=== PATIENT | male | born 1950 | race Caucasian/White ===

== ENCOUNTER 2022-05-29 07:15 | Day surgery (SDC) | payer MEDICARE, BC ==
[~2022-05-29] VITALS: Ht 188 cm; Wt 93.9 kg
[2022-05-29] MEDS ORDERED: AMLO5 (08:22)
[2022-05-29] MEDS ORDERED: FAMO20 (08:22)
[2022-05-29] MEDS ORDERED: METF500 (08:22)
[2022-05-29] MEDS ORDERED: ATOR80 (08:22)
[2022-05-29] MEDS ORDERED: Protonix40 M1 (08:22)
[2022-05-29] MEDS ORDERED: ASPI81CH (08:23)
[2022-05-29] MEDS ORDERED: BUSP5 (08:23)
[2022-05-29] MEDS ORDERED: LORA10ER (08:23)
[2022-05-29] MEDS ORDERED: Bystolic10 MG (08:23)
== END 2022-05-29 10:07 | disposition home or self-care (01) ==
LOC: ORSCSDS 07:15
PROVIDERS: Internal Medicine Gastroenterology
PROC: 0DB68ZX Excision of Stomach, Via Natural or Artificial Opening Endoscopic, Diagnostic (ICD-10-PCS; principal; 2022-05-29 08:45)
PROC: 0DB98ZX Excision of Duodenum, Via Natural or Artificial Opening Endoscopic, Diagnostic (ICD-10-PCS; principal; 2022-05-29 08:45)
PROC: 0DJD8ZZ Inspection of Lower Intestinal Tract, Via Natural or Artificial Opening Endoscopic (ICD-10-PCS; principal; 2022-05-29 08:45)
DX: Z86.010 Personal history of colon polyps (principal); K31.7 Polyp of stomach and duodenum; K29.70 Gastritis, unspecified, without bleeding; I89.0 Lymphedema, not elsewhere classified; K21.9 Gastro-esophageal reflux disease without esophagitis; K64.8 Other hemorrhoids; K57.30 Diverticulosis of large intestine without perforation or abscess without bleeding; C67.9 Malignant neoplasm of bladder, unspecified; I10 Essential (primary) hypertension; F41.9 Anxiety disorder, unspecified; E11.9 Type 2 diabetes mellitus without complications; Z79.84 Long term (current) use of oral hypoglycemic drugs; Z79.899 Other long term (current) drug therapy
CPT/HCPCS: 82947; 88305; 88341; 88342; J2704; J7120

== ENCOUNTER 2022-08-07 10:37 | Inpatient (IN) | payer MEDICARE, BC ==
[~2022-08-07] VITALS: Ht 188 cm; Wt 84.8 kg
[~2022-08-07 10:37] MED LIST changes: -AMLO5; +AMLO5 PO; -ASPI81CH; +ASPI81CH PO; +ATOR20 PO; -ATOR80; -BUSP5; +BUSP5 PO; -Bystolic10 MG; +Bystolic10 MG PO; -FAMO20; +FAMO20 PO; -LORA10ER; +LORA10ER PO; -ONDA4ODT; -OXYC5 PO; -TAMS.4ER PO
[2022-08-07 11:10] LABS: BASOPHILS ABSOLUTE AUTO 0.03 K/mm3 (0.00-0.23); BASOPHILS PERCENT AUTO 1 % (0-2); EOSINOPHILS ABSOLUTE AUTO 0.02 K/mm3 (0.00-0.68); EOSINOPHILS PERCENT AUTO 1 % (0-6); Hematocrit 31.7 % (37.0-53.0); Hemoglobin 11.2 g/dL (13.5-17.5); IMMATURE GRAN ABSOLUTE AUTO 0.02 K/mm3 (0.00-0.10); IMMATURE GRAN PERCENT AUTO 1 % (0-1); LYMPHOCYTES ABSOLUTE AUTO 0.75 K/mm3 (0.84-5.20); LYMPHOCYTES PERCENT AUTO 20 % (21-46); MONOCYTES ABSOLUTE AUTO 0.21 K/mm3 (0.16-1.47); MONOCYTES PERCENT AUTO 6 % (4-13); Mean Corpuscular HGB 29.4 pg (26.0-34.0); Mean Corpuscular HGB Conc 35.3 g/dL (31.5-36.5); Mean Corpuscular Volume 83 fL (80-100); Mean Platelet Volume 9.5 fL (9.1-12.4); NEUTROPHILS ABSOLUTE AUTO 2.66 K/mm3 (1.96-9.15); NEUTROPHILS PERCENT AUTO 72 % (41-73); Platelet Count 158 K/mm3 (150-400); RDW Coefficient Variation 12.9 % (11.7-14.2); RDW Standard Deviation 39.2 fL (35.1-46.3); Red Blood Cell Count 3.81 M/mm3 (4.30-5.90); White Blood Cell Count 3.69 K/mm3 (4.00-11.30)
[2022-08-07 11:47] LABS: Albumin, Blood 2.6 g/dL (3.4-5.0); Albumin/Globulin Ratio 0.6 (0.8-1.8); Bilirubin, Total 0.6 mg/dL (0.1-1.0); Bun/Creatinine Ratio 12.4 (12.0-20.0); Calcium, Blood 6.7 mg/dL (8.5-10.1); Creatinine, Blood 3.3 mg/dL (0.60-1.20); Potassium, Blood 3.1 mmol/L (3.5-5.5); Total Protein, Blood 6.6 g/dL (6.4-8.2)
[2022-08-07 12:27] LABS: Influenza A, PCR NEGATIVE (NEGATIVE); Influenza B, PCR NEGATIVE (NEGATIVE); Resp Syncytial Virus, PCR NEGATIVE (NEGATIVE); SARS-Cov-2 (COVID-19) PCR, MMC NEGATIVE (NEGATIVE)
[2022-08-07 15:15] LABS: Bun/Creatinine Ratio 14.6 (12.0-20.0); Calcium, Blood 6.5 mg/dL (8.5-10.1); Creatinine, Blood 3.08 mg/dL (0.60-1.20); Potassium, Blood 3.5 mmol/L (3.5-5.5)
--- NOTE | 2022-08-07 15:45 | NUR ---
PT ARRIVED TO UNIT @ THIS TIME. PT ARRIVES W/ SURG CONSENT FOR DR. AGUILA IN HAND-NO REPORT OF PLANNED SURG PROCEDURE. PT STATES DR. AGUILA INFORMED HIM OF NEEDED NEPH TUBES AND NEEDED RESPONSE W/IN APPROX. 1 HOUR-DR. AGUILA OFFICE CONTACTED AND THIS RN REPORTS PT PLANS TO HAVE SURG. PROCEDURE. IND. IN ROOM. LAST ATE APPROX. 1300 W/ ORAL K+ ADMIN. ER NURSE UNAWARE OF PLANNED PROCEDURE. PT C/O MISSING MED LIST PROVIDED TO ER, NURSE NOTIFIED AND PLANS TO TUBE MED LIST IF FOUND. PT ORIENTED TO ROOM, ADMIN COMPLETE @ THIS TIME.
[2022-08-07] MEDS ORDERED: ONDA4ODT PO (16:02)
[2022-08-07] MEDS ORDERED: TAMS.4ER PO (16:03)
[2022-08-07] MEDS ORDERED: OXYC5 PO (16:06)
--- NOTE | 2022-08-07 17:05 | NUR ---
PT TO PROCEDURE @ THIS TIME
--- NOTE | 2022-08-07 18:33 | NUR ---
PT RETURNED FROM PACU @ THIS TIME VSS. MIN. EBL. DENIES PAIN. BILAT NEPHROSTOMY DRESSING CDI, DRAINING PINK THIN LIQUIDS TO GRAVITY. PT REQUESTING FOOD, PLAN TO ADVANCE TOLERATED.
--- NOTE | 2022-08-08 05:09 | NUR ---
SHIFT SUMMARY NOC PT A/O X 4. PT VSS POST OP PLACEMENT OF BILATERAL NEPHROSTOMY TUBES WHICH ARE FREE FROM S/S OF INFECTION AND DRAINING PINK TINGED URINE WITH GOOD OUTPUT TO GRAVITY. PT CURRENTLY HAS LR RUNNING @ 125MLS. PT AWAITING RESOLUTION OF HYPOVOLEMIA AND DECREASED POTASSIUM. AWAITING AM LAB RESULTS. PT PLEASANT AND COOPERATIVE TO CARE. NO ACUTE CHANGES. PT CURRENTLY RESTING WITH BED RAILS UP, BED IN LOWEST POSITION, AND CALL LIGHT WITHIN REACH.
[2022-08-08 05:30] LABS: Hemoglobin 10.5 g/dL (13.5-17.5); Mean Corpuscular HGB 29.1 pg (26.0-34.0); Mean Corpuscular Volume 83 fL (80-100); Mean Platelet Volume 9.1 fL (9.1-12.4); Platelet Count 111 K/mm3 (150-400); RDW Coefficient Variation 12.8 % (11.7-14.2); RDW Standard Deviation 39.1 fL (35.1-46.3); Red Blood Cell Count 3.61 M/mm3 (4.30-5.90); White Blood Cell Count 2.72 K/mm3 (4.00-11.30)
[2022-08-08 05:51] LABS: Magnesium, Blood 1.7 mg/dL (1.6-2.4)
[2022-08-08 05:52] LABS: Bun/Creatinine Ratio 14.1 (12.0-20.0); Calcium, Blood 6.3 mg/dL (8.5-10.1); Creatinine, Blood 3.06 mg/dL (0.60-1.20); Potassium, Blood 3.4 mmol/L (3.5-5.5)
--- NOTE | 2022-08-08 13:08 | NUR ---
Upon receiving a referral for spiritual care, I visited the patient. The patient is lying in bed and alert. He immediately talks about his medical problems, the poor diagnosis he received from his oncologist and his deep depression (upon hearing the mediacl prognosis). 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 He shares about his years of not being the man he wanted to be and the change that occurred in his life because of his spouse, Tiki and his fatih in God. He talks about his hobbies and interests and how they create some respite from the cancer urban. I reinforce helpful attitudes and practices, hear confession and provide therapeutic listening, theological insights and prayer. Pt responds well and shows sign of a reduction in stress and an elevation in mood. I will continue to remain available to patient and family.
--- NOTE | 2022-08-08 16:59 | NUR ---
SHIFT SUMMARY PT A&OX4 AND IN PLEASENT MOOD T/O SHIFT. TOLERATING PO DIET WELL. BILAT NEPHROSTOMY BAGS IN PLACE, DRAINING RED URINE TO GRAVITY. DENIES PAIN T/O SHIFT. PT VOICED CONCERN ABOUT NOT UNDERSTADING HIS ILLNESS-DR. SEXTON IN TO SEE PT AND ANSWER ALL QUESTIONS POSSIBLE. CALL LIGHT W/IN REACH. VSS. IND IN ROOM.
--- NOTE | 2022-08-09 04:24 | NUR ---
SHIFT SUMMARY NOC PT A/O X 4. PT VSS. PT BL NEPHROSTOMY DRESSING IS C/D/I. TUBES ARE DRAINING PINK URINE TO GRAVITY. PT IS AWAITING RENAL PANEL LABS/ELECTROLYTE PANEL FOR DISCHAGE. PT HAS ANXIETY ABOUT NEW NEPHROSTOMY AND MANAGING THEM. PT ALSO CONCERNED ABOUT TERMINAL CANCER DIAGNOSIS WHICH HAS KENDAL TO BACK BONES AND LIVER. NO ACUTE CHANGES DURING SHIFT. PT IS CURRENTLY RESTING WITH BED RAILS UP, BED IN LOWEST POSITION, AND CALL LIGHT WITHIN REACH.
[2022-08-09 04:53] LABS: Hematocrit 30.5 % (37.0-53.0); Hemoglobin 10.7 g/dL (13.5-17.5); Mean Corpuscular HGB 29.3 pg (26.0-34.0); Mean Corpuscular HGB Conc 35.1 g/dL (31.5-36.5); Mean Corpuscular Volume 84 fL (80-100); Mean Platelet Volume 9.2 fL (9.1-12.4); Platelet Count 105 K/mm3 (150-400); RDW Coefficient Variation 12.8 % (11.7-14.2); RDW Standard Deviation 39.3 fL (35.1-46.3); Red Blood Cell Count 3.65 M/mm3 (4.30-5.90); White Blood Cell Count 3.28 K/mm3 (4.00-11.30)
[2022-08-09 05:20] LABS: Bun/Creatinine Ratio 13.5 (12.0-20.0); Calcium, Blood 6.6 mg/dL (8.5-10.1); Creatinine, Blood 3.1 mg/dL (0.60-1.20); Potassium, Blood 3.5 mmol/L (3.5-5.5)
--- NOTE | 2022-08-09 17:43 | NUR ---
Had extensive conversation with patient about his careneeds and prognosis. He did most of the talking. He is worried about his prognsois and care needs. He is his 's primary day care provider she is a very frail copd patient. He is upset about his prognosis and how with will effect his family and children. We discussed his renal function and potential future needs. Will suggest pt get referral to dr tidwell or other print controller. He has a PHARMACEUTICAL ENGINEER as his pormary that is hard to get into and i urologist is in [place]. May benefit or tolerate tratment better out patient care. pt high risk for readmission and repeat WILBERTO. Reviewed POA, Bernstein, trust and code status and downsizing and making a plan for his . 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 He is grieving the loss of his function and ability to care for his . Will follow up with a polst and plan of care.
--- NOTE | 2022-08-09 18:23 | NUR ---
ALERT AND ORIENTED X4, MAKES NEEDS KNOWN, ANXIOUS ABOUT TUBE CARE, EXTENSIVE EDUCATION GIVEN ON NEPHROTUBES HOME CARE, FOLLOW UP NEEDS, AND THE DISCHARGE PROCESS. POSSIBLE DISCHARGE TOMORROW, PATIENT WANTING A CONSULT WITH DR BECK FOR KIDNEY NEEDS. DENIES PAIN THROUGH OUT THE DAY, INDEPENDENT IN ROOM, PLEASANT TO ALL CARE, CALL LIGHT WITH IN REACH, NOT ACUTE CHANGES, WILL RELAY TO PM RN
[2022-08-10 04:56] LABS: Hematocrit 29.7 % (37.0-53.0); Hemoglobin 10.5 g/dL (13.5-17.5); Mean Corpuscular HGB 29.4 pg (26.0-34.0); Mean Corpuscular HGB Conc 35.4 g/dL (31.5-36.5); Mean Corpuscular Volume 83 fL (80-100); Mean Platelet Volume 9.5 fL (9.1-12.4); Platelet Count 101 K/mm3 (150-400); RDW Coefficient Variation 12.8 % (11.7-14.2); Red Blood Cell Count 3.57 M/mm3 (4.30-5.90); White Blood Cell Count 3.15 K/mm3 (4.00-11.30)
[2022-08-10 05:28] LABS: Albumin, Blood 2.4 g/dL (3.4-5.0); Anion Gap 5 mmol/L (6-16); Blood Urea Nitrogen 38 mg/dL (8-24); CO2, Blood 28 mmol/L (21-32); Calcium, Blood 6.7 mg/dL (8.5-10.1); Chloride, Blood 104 mmol/L (98-108); Creatinine, Blood 2.37 mg/dL (0.60-1.20); Glomerular Filtration Rate 28 (60-); Glucose, Blood 119 mg/dL (70-99); Phosphorus, Blood 3.7 mg/dL (2.5-4.9); Potassium, Blood 3.3 mmol/L (3.5-5.5); Sodium, Blood 137 mmol/L (136-145)
--- NOTE | 2022-08-10 06:07 | NUR ---
LEGAL PARAPROFESSIONAL SUMMARY: A&Ox4. PLEASANT AND COOPERATIVE WITH CARE. CALLS APPROPRIATELY AND IS ABLE TO COMMUNICATE NEEDS EFFECTIVELY. BILATERAL NEPHROSTOMIES PATENT AND DRAINING TO GRAVITY. DENIES C / O PAIN IN SPITE OF METS TO BONE AND LIVER. CONTINUES TO HAVE ANXIETY R / T TERMINAL CANCER Dx. ANTICIPATE DC HOME TODAY. LABS DONE THIS AM WITHOUT RETURN OF CRITICAL VALUES. WILL REPORT TO ONCOMING RN.
[2022-08-10] MEDS ORDERED: DOCU100 PO (12:48)
[2022-08-10] MEDS ORDERED: ACET325 PO (12:48)
[2022-08-10] MEDS ORDERED: SENN187 PO (12:49)
== END 2022-08-10 15:13 | disposition home health service (06) | DRG 684 ==
LOC: ER 10:37 → MEDS 13:14
PROVIDERS: Emergency Medicine; Internal Medicine; Nurse Practitioner Acute Care; ADMIT Internal Medicine
PROC: 0T9030Z Drainage of Right Kidney with Drainage Device, Percutaneous Approach (ICD-10-PCS; principal; 2022-08-08)
PROC: 0T9130Z Drainage of Left Kidney with Drainage Device, Percutaneous Approach (ICD-10-PCS; 2022-08-08)
DX: N17.9 Acute kidney failure, unspecified (principal); E86.0 Dehydration; E83.51 Hypocalcemia; E87.6 Hypokalemia; E11.9 Type 2 diabetes mellitus without complications; C67.9 Malignant neoplasm of bladder, unspecified; N13.39 Other hydronephrosis; F41.9 Anxiety disorder, unspecified; E86.1 Hypovolemia; D70.1 Agranulocytosis secondary to cancer chemotherapy; T45.1X5A Adverse effect of antineoplastic and immunosuppressive drugs, initial encounter; D64.81 Anemia due to antineoplastic chemotherapy
CPT/HCPCS: 0241U; 36415; 71045; 74176; 76937; 80048; 80053; 80069; 82550; 82947; 83735; 85025; 85027; 93005; 93010; 96361; 96365; 99152; 99153; 99285-25; A9270; C1729; C1769; C1894; J0610; J1644; J2250; J3010; J7030; J7040; J7120; Q9967

== ENCOUNTER → 2022-08-07 | Outpatient (CLI) | payer MEDICARE, BC ==
[~2022-08-07] MED LIST: AMLO5; ASPI81CH; ATOR80; BUSP5; Bystolic10 MG; FAMO20; LORA10ER; METF500; ONDA4ODT; OXYC5 PO; Protonix40 M1; TAMS.4ER PO
[2022-08-07 11:10] LABS: BASOPHILS ABSOLUTE AUTO 0.02 K/mm3 (0.00-0.23); BASOPHILS PERCENT AUTO 1 % (0-2); EOSINOPHILS ABSOLUTE AUTO 0.04 K/mm3 (0.00-0.68); EOSINOPHILS PERCENT AUTO 1 % (0-6); Hematocrit 34.6 % (37.0-53.0); Hemoglobin 12.1 g/dL (13.5-17.5); IMMATURE GRAN ABSOLUTE AUTO 0.04 K/mm3 (0.00-0.10); IMMATURE GRAN PERCENT AUTO 1 % (0-1); LYMPHOCYTES ABSOLUTE AUTO 0.56 K/mm3 (0.84-5.20); LYMPHOCYTES PERCENT AUTO 15 % (21-46); MONOCYTES ABSOLUTE AUTO 0.22 K/mm3 (0.16-1.47); MONOCYTES PERCENT AUTO 6 % (4-13); Mean Corpuscular HGB 29.2 pg (26.0-34.0); Mean Corpuscular Volume 84 fL (80-100); Mean Platelet Volume 9.8 fL (9.1-12.4); NEUTROPHILS ABSOLUTE AUTO 2.76 K/mm3 (1.96-9.15); NEUTROPHILS PERCENT AUTO 76 % (41-73); Platelet Count 172 K/mm3 (150-400); RDW Standard Deviation 39.6 fL (35.1-46.3); Red Blood Cell Count 4.14 M/mm3 (4.30-5.90); White Blood Cell Count 3.64 K/mm3 (4.00-11.30)
[2022-08-07 13:07] LABS: Albumin, Blood 2.7 g/dL (3.4-5.0); Albumin/Globulin Ratio 0.6 (0.8-1.8); Bilirubin, Total 0.6 mg/dL (0.1-1.0); Bun/Creatinine Ratio 11.8 (12.0-20.0); Calcium, Blood 6.8 mg/dL (8.5-10.1); Creatinine, Blood 3.3 mg/dL (0.60-1.20); Globulin, Blood 4.5 g/dL (2.2-4.0); Potassium, Blood 3.1 mmol/L (3.5-5.5); Total Protein, Blood 7.2 g/dL (6.4-8.2)
== END | disposition home or self-care (01) ==
LOC: LAB SHORT 09:00
PROVIDERS: Internal Medicine Hematology & Oncology
DX: C67.9 Malignant neoplasm of bladder, unspecified (principal)
CPT/HCPCS: 80053; 85025

== ENCOUNTER → 2022-08-30 | Outpatient (CLI) | payer MEDICARE, BC ==
[~2022-08-30] MED LIST changes: +ACET325 PO; +DOCU100 PO; +ONDA4ODT PO; +OXYC5 PO; +SENN187 PO; +TAMS.4ER PO
[2022-08-30 13:15] LABS: Source, Urine Voided
[2022-08-30 18:03] LABS: Appearance, Urine Cloudy (Clear); Bilirubin, Urine Neg (Neg); Blood, Urine 4+ (Neg); Glucose Qualitative, Urine Neg (Neg); Ketones, Urine Neg (Neg); Leukocyte Esterase, Urine 3+ (Neg); Nitrite, Urine Neg (Neg); Protein, Urine 3+ (Neg); Urobilinogen, Urine NORM (Normal)
[2022-08-30 18:34] LABS: Color, Urine Pale Yellow (P-Yellow)
[2022-08-30 18:35] LABS: White Blood Cells, Urine 50-100 /hpf (0-5)
[2022-08-30 18:36] LABS: Bacteria Many /hpf; Squamous Epithelial Cells Few /hpf (Few); Transitional Epithelial Cells Rare /hpf (0-Rare)
== END | disposition home or self-care (01) ==
LOC: LAB SHORT 12:15 → LAB 12:15
PROVIDERS: Physician Assistant
DX: R39.15 Urgency of urination (principal)
CPT/HCPCS: 81001; 87077; 87086; 87186

== ENCOUNTER 2022-09-26 01:07 | Day surgery (SDC) | payer MEDICARE, BC | END 2022-09-26 18:01 | disposition home or self-care (01) | LOC: ATC 01:07 | DX: C67.8 Malignant neoplasm of overlapping sites of bladder (principal); D64.81 Anemia due to antineoplastic chemotherapy; Z87.891 Personal history of nicotine dependence | CPT/HCPCS: 36430; 86850; 86900; 86901; 86920; J7050; P9016 ==

== ENCOUNTER 2022-10-10 06:51 | Inpatient (IN) | payer MEDICARE, BC ==
[~2022-10-10] VITALS: Ht 188 cm; Wt 88.0 kg
[2022-10-10 07:39] LABS: BASOPHILS PERCENT AUTO 1 % (0-2); EOSINOPHILS ABSOLUTE AUTO 0.04 K/mm3 (0.00-0.68); EOSINOPHILS PERCENT AUTO 0 % (0-6); Hematocrit 35.9 % (37.0-53.0); Hemoglobin 11.5 g/dL (13.5-17.5); IMMATURE GRAN ABSOLUTE AUTO 0.09 K/mm3 (0.00-0.10); IMMATURE GRAN PERCENT AUTO 1 % (0-1); LYMPHOCYTES ABSOLUTE AUTO 0.26 K/mm3 (0.84-5.20); LYMPHOCYTES PERCENT AUTO 2 % (21-46); MONOCYTES ABSOLUTE AUTO 1.23 K/mm3 (0.16-1.47); MONOCYTES PERCENT AUTO 10 % (4-13); Mean Corpuscular Volume 94 fL (80-100); Mean Platelet Volume 9.9 fL (9.1-12.4); NEUTROPHILS ABSOLUTE AUTO 10.88 K/mm3 (1.96-9.15); NEUTROPHILS PERCENT AUTO 86 % (41-73); Platelet Count 256 K/mm3 (150-400); RDW Coefficient Variation 21.7 % (11.7-14.2); RDW Standard Deviation 70.4 fL (35.1-46.3); Red Blood Cell Count 3.83 M/mm3 (4.30-5.90)
[2022-10-10 07:48] LABS: Source, Urine Nephrostomy
[2022-10-10 07:52] LABS: Bilirubin, Urine Neg (Neg); Blood, Urine 2+ (Neg); Glucose Qualitative, Urine Neg (Neg); Ketones, Urine Neg (Neg); Leukocyte Esterase, Urine 3+ (Neg); Nitrite, Urine Neg (Neg); Protein, Urine 3+ (Neg); Urobilinogen, Urine NORM (Normal)
[2022-10-10 07:59] LABS: Albumin, Blood 3.4 g/dL (3.4-5.0); Albumin/Globulin Ratio 0.8 (0.8-1.8); Bilirubin, Total 0.6 mg/dL (0.1-1.0); Calcium, Blood 8.5 mg/dL (8.5-10.1); Creatinine, Blood 1.77 mg/dL (0.60-1.20); Potassium, Blood 4.2 mmol/L (3.5-5.5); Total Protein, Blood 7.4 g/dL (6.4-8.2)
[2022-10-10 08:13] LABS: Appearance, Urine Cloudy (Clear); Color, Urine Yellow (P-Yellow)
[2022-10-10 08:21] LABS: Bacteria Many /hpf; Squamous Epithelial Cells Rare /hpf (Few); White Blood Cells, Urine TNTC /hpf (0-5)
[2022-10-10] MEDS ORDERED: OMEP20ER PO (16:52)
--- NOTE | 2022-10-10 18:26 | NUR ---
ADMIT NOTE/SHIFT SUMMARY- PT ALERT, ORIENTED AND INDEPENDENT IN THE ROOM. PT HAS TWO URINALS LABLED L AND R SO HE CAN EMPTY HIS NEPHROSTOMY. HE HAS BEEN ASKED TO CALL STAFF TO EMPTY THE URINALS SO THEY CAN BE DOCUMENTED. PT IS CURRENTLY IN BED CALL LIGHT IN REACH NO S&S OF DISTRESS, ADMISSION IS COMPLETED MED REC PROVIDED BY THE PT FAMILY. PT ADMITTED AFTER HE RECIEVED A DOSE OF IMMUNOTHERAPY DRUG AND THEN THE FOLLOWING MORNING (TODAY) HE DEVELOPED A FEVER. PT WAS POSITIVE FOR UTI ON ADMIT AND IS GETTING ABX FOR THIS. NO FEVER SINCE ADMISSION ON MEDICAL FLOOR. WILL PASS ALL ON IN BEDSIDE REPORT WITH NIGHT RN.
[2022-10-11 05:11] LABS: BASOPHILS ABSOLUTE AUTO 0.07 K/mm3 (0.00-0.23); BASOPHILS PERCENT AUTO 1 % (0-2); EOSINOPHILS ABSOLUTE AUTO 0.07 K/mm3 (0.00-0.68); EOSINOPHILS PERCENT AUTO 1 % (0-6); Hematocrit 29.1 % (37.0-53.0); Hemoglobin 9.4 g/dL (13.5-17.5); IMMATURE GRAN ABSOLUTE AUTO 0.03 K/mm3 (0.00-0.10); IMMATURE GRAN PERCENT AUTO 1 % (0-1); LYMPHOCYTES ABSOLUTE AUTO 0.64 K/mm3 (0.84-5.20); LYMPHOCYTES PERCENT AUTO 11 % (21-46); MONOCYTES PERCENT AUTO 18 % (4-13); Mean Corpuscular HGB 30.5 pg (26.0-34.0); Mean Corpuscular HGB Conc 32.3 g/dL (31.5-36.5); Mean Corpuscular Volume 95 fL (80-100); Mean Platelet Volume 9.6 fL (9.1-12.4); NEUTROPHILS ABSOLUTE AUTO 3.87 K/mm3 (1.96-9.15); NEUTROPHILS PERCENT AUTO 68 % (41-73); Platelet Count 187 K/mm3 (150-400); RDW Coefficient Variation 21.4 % (11.7-14.2); RDW Standard Deviation 69.7 fL (35.1-46.3); Red Blood Cell Count 3.08 M/mm3 (4.30-5.90); White Blood Cell Count 5.68 K/mm3 (4.00-11.30)
[2022-10-11 05:31] LABS: Bun/Creatinine Ratio 13.2 (12.0-20.0); Calcium, Blood 7.9 mg/dL (8.5-10.1); Creatinine, Blood 1.9 mg/dL (0.60-1.20); Potassium, Blood 4.1 mmol/L (3.5-5.5)
--- NOTE | 2022-10-11 06:37 | NUR ---
PATIENT ALERT AND ORIENTED, ROOM AIR, INDEPENDENT, NO TELE, ADA DIET, 20 RFA W/ LR @75 CC/HR, PATIENT HAD BILATERAL NEPHROSTOMY TUBES IN PLACE AND PATENT, PATIENT EMPTIES THEM HIMSELF, OXY GIVEN X2 FOR PAIN, NO EVENTS OVERNIGHT
--- NOTE | 2022-10-11 18:34 | NUR ---
SHIFT SUMMARY PT IX AXO 4. H HAS BEEN UP INDEPENDENTLY AND EMPTYING HIS OWN NEPHROSTOMYS. TOLERATED ABX AND ABLE TO GET HOME BP MED FROM HIS SON WHICH IS LABELED BY PHARM AND PLACED IN THE DRAWER. THIS EVENING HE WAS ANXIOUS AND WANTED ME TO CHECK HIS GARCÍA WHICH WAS ELEVATED. hE STATED HE FELT SCK TO HIS STOMACH AND JUMPY WELL FELT THOUGHT HE WAS HALLUCINATING FLOATING BOXES AND THE TV COMING OFF THE WALL. DR NOTIFIED. OFFERED A ONE TIME DOSE OF ATIVAN. PT RESPONDING WELL AND ABLE TO SETTLE INTO BED. BED IN LOWEST POSITION AND CALL LIGHT IN REACH.
[2022-10-12 05:36] LABS: Magnesium, Blood 1.8 mg/dL (1.6-2.4)
[2022-10-12 05:37] LABS: Albumin, Blood 2.7 g/dL (3.4-5.0); Anion Gap 3 mmol/L (6-16); Blood Urea Nitrogen 25 mg/dL (8-24); Bun/Creatinine Ratio 14.5 (12.0-20.0); CO2, Blood 26 mmol/L (21-32); Calcium, Blood 8.2 mg/dL (8.5-10.1); Chloride, Blood 109 mmol/L (98-108); Creatinine, Blood 1.72 mg/dL (0.60-1.20); Glomerular Filtration Rate 41 (60-); Glucose, Blood 110 mg/dL (70-99); Phosphorus, Blood 3.4 mg/dL (2.5-4.9); Sodium, Blood 138 mmol/L (136-145)
--- NOTE | 2022-10-12 06:31 | NUR ---
PATIENT COMPLAINED OF PAIN THROUGHOUT SHIFT. MEDICATED PER EMAR AND APPLIED HEATING PAD TO BACK.
--- NOTE | 2022-10-12 18:03 | NUR ---
SHIFT SUMMARY PT HAS HAD A BETTER DAY WITH ANXIETY, BUT HAS NOTICED THAT HIS PAIN MEDICATION NEEDS HAVE INCREASED. hE IS NOW BEING MEDICATED ALMOST EVERY FOUR HOURS AND IS STILL EXPERIENCEING BREATHROUGH. HE WAS ABLE TO NAP ON AND OFF TODAY TO MAKE UP FOR SLEEP LOST. ANXEIETY WAS CONTROLLED AND HOME ANXIETY MED WAS ORDERED FOR PM. PT SPOKE WITH MD AND DECIDED ONE MORE DAY ON ABX WOULD BE EBENFICIAL AND SO HE WILL DC TOMORROW IF ALL GOES WELL. PT UP INDEPENDENT IN THE ROOM, EMPTYING OWN NEPTHROSOTMIES. GOOD URINE OUTPUT, PT WELL HYDRATED. BED IN LOWEST POSITION AND CALL LIGHT IN REACH.
--- NOTE | 2022-10-13 06:02 | NUR ---
PATIENT ALERT AND ORIENTED, ROOM AIR, NO TELE, BILATERAL NEPHROSTOMY TUBES WITH GREAT OUTPUT, PATIENT INDEPENDENT, MEDICATED FOR PAIN X2, NO EVENTS OVERNIGHT, PLAN TO D/C HOME TODAY
[2022-10-13] MEDS ORDERED: MIRALAX17 GM PO (12:45)
[2022-10-13] MEDS ORDERED: AMLO5 PO (12:45)
[2022-10-13] MEDS ORDERED: VISBIOME 112.51 EACH PO (12:45)
[2022-10-13] MEDS ORDERED: AMOCLA875 PO (12:46)
--- NOTE | 2022-10-13 15:19 | NUR ---
DISCHARGE NOTE MR JACKSON WAS DISCHARGED HOME FROM [facility] AT 1400HRS VIA WHEELCHAIR WITH HIS SON. THEY VERBALISED UNDERSTANDING OF WRITTEN AND VERBAL DISCHARGE INSTRUCTIONS. SON HAS PICKED UP FAXED MEDICATIONS AND HAS NARCOTIC PRESCRIPTION. MR JACKSON DENIED PAIN TODAY, DID NOT WANT OR NEED OXY. PIV REMOVED INTACT PRIOR TO DISCHARGE. PT AMBULATORY, STEADY GAIT, IN HIS ROOM AND TO BATHROOM THROUGHOUT THE SHIFT.
== END 2022-10-13 15:10 | disposition home or self-care (01) | DRG 698 ==
LOC: ER 06:51 → MEDS 10:45
PROVIDERS: Emergency Medicine; Internal Medicine; Nurse Practitioner Acute Care; ADMIT Internal Medicine
DX: T83.512A Infection and inflammatory reaction due to nephrostomy catheter, initial encounter (principal); A41.81 Sepsis due to Enterococcus; C79.51 Secondary malignant neoplasm of bone; N13.6 Pyonephrosis; C77.4 Secondary and unspecified malignant neoplasm of inguinal and lower limb lymph nodes; D84.9 Immunodeficiency, unspecified; F41.9 Anxiety disorder, unspecified; N18.9 Chronic kidney disease, unspecified; K21.9 Gastro-esophageal reflux disease without esophagitis; E78.5 Hyperlipidemia, unspecified; D63.1 Anemia in chronic kidney disease; E11.22 Type 2 diabetes mellitus with diabetic chronic kidney disease; I12.9 Hypertensive chronic kidney disease with stage 1 through stage 4 chronic kidney disease, or unspecified chronic kidney disease; C67.9 Malignant neoplasm of bladder, unspecified; Z93.6 Other artificial openings of urinary tract status; Z92.25 Personal history of immunosuppression therapy; Z88.5 Allergy status to narcotic agent; Z88.8 Allergy status to other drugs, medicaments and biological substances; Z79.02 Long term (current) use of antithrombotics/antiplatelets; Z79.899 Other long term (current) drug therapy; Z79.82 Long term (current) use of aspirin; Y84.6 Urinary catheterization as the cause of abnormal reaction of the patient, or of later complication, without mention of misadventure at the time of the procedure; Z79.891 Long term (current) use of opiate analgesic; Z98.890 Other specified postprocedural states
CPT/HCPCS: 36415; 71045; 74177; 80048; 80053; 80069; 81001; 83036; 83605; 83735; 85025; 87077; 87086; 87186; 96365-59; 96366; 96368; 96375; 99285-25; A9270; J0295; J0696; J1644; J2405; J7030; J7120; Q9967

== ENCOUNTER 2022-10-18 23:50 | Emergency (ER) | payer MEDICARE, BC ==
[~2022-10-18] VITALS: Ht 188 cm; Wt 90.7 kg
[~2022-10-18 23:50] MED LIST changes: +AMOCLA875 PO; +MIRALAX17 GM PO; +OMEP20ER PO; +VISBIOME 112.51 EACH PO
== END 2022-10-19 07:31 | disposition home or self-care (01) ==
LOC: ER 23:50
DX: T83.89XA Other specified complication of genitourinary prosthetic devices, implants and grafts, initial encounter (principal); Y73.8 Miscellaneous gastroenterology and urology devices associated with adverse incidents, not elsewhere classified
CPT/HCPCS: 99282

== ENCOUNTER → 2022-11-29 | Outpatient (CLI) | payer MEDICARE, BC ==
[~2022-11-29] MED LIST changes: +AMLODIPINE-ATO1 EAC1 PO; +CALC.25 PO; +FURO20 PO; +HYDR1TAB94 PO; +LEVFLO500 PO; +NEBI10 PO
[2022-11-29 12:48] LABS: Source, Urine Clean Catch
[2022-11-29 13:52] LABS: Appearance, Urine Cloudy (Clear); Bilirubin, Urine Neg (Neg); Blood, Urine 3+ (Neg); Color, Urine Yellow (P-Yellow); Glucose Qualitative, Urine Neg (Neg); Ketones, Urine Neg (Neg); Leukocyte Esterase, Urine 3+ (Neg); Nitrite, Urine Neg (Neg); Protein, Urine 3+ (Neg); Specific Gravity, Urine 1.005 (1.003-1.022); Urobilinogen, Urine NORM (Normal)
[2022-11-29 14:00] LABS: Bacteria Mod /hpf; Mucus Mod (0-Heavy); Squamous Epithelial Cells Few /hpf (Few)
== END | disposition home or self-care (01) ==
LOC: LAB SHORT 10:55 → LAB 10:55
PROVIDERS: Urology
DX: N39.0 Urinary tract infection, site not specified (principal)
CPT/HCPCS: 81001; 87077; 87086; 87186

== ENCOUNTER → 2022-12-11 | Outpatient (CLI) | payer MEDICARE, BC ==
[2022-12-11 10:01] LABS: BASOPHILS ABSOLUTE AUTO 0.03 K/mm3 (0.00-0.23); BASOPHILS PERCENT AUTO 1 % (0-2); EOSINOPHILS ABSOLUTE AUTO 0.09 K/mm3 (0.00-0.68); EOSINOPHILS PERCENT AUTO 2 % (0-6); Hematocrit 40.5 % (37.0-53.0); Hemoglobin 13.6 g/dL (13.5-17.5); IMMATURE GRAN ABSOLUTE AUTO 0.01 K/mm3 (0.00-0.10); IMMATURE GRAN PERCENT AUTO 0 % (0-1); LYMPHOCYTES ABSOLUTE AUTO 0.67 K/mm3 (0.84-5.20); LYMPHOCYTES PERCENT AUTO 16 % (21-46); MONOCYTES PERCENT AUTO 12 % (4-13); Mean Corpuscular HGB 28.7 pg (26.0-34.0); Mean Corpuscular HGB Conc 33.6 g/dL (31.5-36.5); Mean Corpuscular Volume 85 fL (80-100); Mean Platelet Volume 9.8 fL (9.1-12.4); NEUTROPHILS ABSOLUTE AUTO 2.98 K/mm3 (1.96-9.15); NEUTROPHILS PERCENT AUTO 70 % (41-73); Platelet Count 187 K/mm3 (150-400); RDW Coefficient Variation 12.9 % (11.7-14.2); Red Blood Cell Count 4.74 M/mm3 (4.30-5.90); White Blood Cell Count 4.28 K/mm3 (4.00-11.30)
[2022-12-11 10:18] LABS: Albumin, Blood 3.1 g/dL (3.4-5.0); Albumin/Globulin Ratio 0.7 (0.8-1.8); Bilirubin, Total 0.6 mg/dL (0.1-1.0); Bun/Creatinine Ratio 12.4 (12.0-20.0); Calcium, Blood 8.3 mg/dL (8.5-10.1); Creatinine, Blood 1.29 mg/dL (0.60-1.20); Globulin, Blood 4.6 g/dL (2.2-4.0); Potassium, Blood 3.6 mmol/L (3.5-5.5); Total Protein, Blood 7.7 g/dL (6.4-8.2)
== END | disposition home or self-care (01) ==
LOC: LAB SHORT 09:10 → LAB 09:10
PROVIDERS: Internal Medicine Hematology & Oncology
DX: C67.8 Malignant neoplasm of overlapping sites of bladder (principal)
CPT/HCPCS: 80053; 85025

== ENCOUNTER → 2022-12-13 | Outpatient (CLI) | payer MEDICARE, BC ==
[~2022-12-13] MED LIST changes: +CEFDINIR300 M4 PO; +MECL25 PO
[2022-12-13 09:25] LABS: Source, Urine Clean Catch
[2022-12-13 13:52] LABS: Appearance, Urine Cloudy (Clear); Bilirubin, Urine Neg (Neg); Blood, Urine 4+ (Neg); Color, Urine Yellow (P-Yellow); Glucose Qualitative, Urine Neg (Neg); Ketones, Urine Neg (Neg); Leukocyte Esterase, Urine 3+ (Neg); Nitrite, Urine Neg (Neg); Protein, Urine 3+ (Neg); Specific Gravity, Urine 1.015 (1.003-1.022); Urobilinogen, Urine NORM (Normal)
[2022-12-13 14:09] LABS: Bacteria Mod /hpf; Red Blood Cells, Urine TNTC /hpf (0-2); White Blood Cells, Urine TNTC /hpf (0-5)
[2022-12-13 14:11] LABS: Hyaline Casts 0-2 /lpf (0-2); Mucus Light (0-Heavy); Squamous Epithelial Cells Rare /hpf (Few); WBC Cast 0-2 /lpf (0)
== END | disposition home or self-care (01) ==
LOC: LAB SHORT 09:24 → LAB 09:24 → EDSTATUS 09-25 11:55 → LAB FUT 09-25 11:55
PROVIDERS: Physician Assistant
DX: C67.9 Malignant neoplasm of bladder, unspecified (principal); N39.0 Urinary tract infection, site not specified
CPT/HCPCS: 81001; 87086

== ENCOUNTER 2022-12-18 08:07 | Emergency (ER) | payer MEDICARE, BC ==
[~2022-12-18] VITALS: Ht 188 cm; Wt 79.4 kg
[2022-12-18 08:34] VITALS: BP 142/54
== END 2022-12-18 10:38 | disposition home or self-care (01) ==
LOC: ER 08:07
DX: T83.022A Displacement of nephrostomy catheter, initial encounter (principal); Z96.0 Presence of urogenital implants; I10 Essential (primary) hypertension; E11.9 Type 2 diabetes mellitus without complications; Z85.51 Personal history of malignant neoplasm of bladder; Z88.5 Allergy status to narcotic agent; Z88.8 Allergy status to other drugs, medicaments and biological substances; Z79.899 Other long term (current) drug therapy; X58.XXXA Exposure to other specified factors, initial encounter
CPT/HCPCS: 74018

== ENCOUNTER 2022-12-24 10:09 | Emergency (ER) | payer MEDICARE, BC ==
[~2022-12-24] VITALS: Ht 188 cm; Wt 74.8 kg
[2022-12-24 10:53] LABS: BASOPHILS ABSOLUTE AUTO 0.03 K/mm3 (0.00-0.23); BASOPHILS PERCENT AUTO 1 % (0-2); EOSINOPHILS PERCENT AUTO 0 % (0-6); IMMATURE GRAN ABSOLUTE AUTO 0.01 K/mm3 (0.00-0.10); IMMATURE GRAN PERCENT AUTO 0 % (0-1); LYMPHOCYTES ABSOLUTE AUTO 0.36 K/mm3 (0.84-5.20); LYMPHOCYTES PERCENT AUTO 13 % (21-46); MONOCYTES ABSOLUTE AUTO 0.57 K/mm3 (0.16-1.47); MONOCYTES PERCENT AUTO 20 % (4-13); Mean Corpuscular HGB 28.2 pg (26.0-34.0); Mean Corpuscular HGB Conc 34.2 g/dL (31.5-36.5); Mean Corpuscular Volume 82 fL (80-100); NEUTROPHILS ABSOLUTE AUTO 1.86 K/mm3 (1.96-9.15); NEUTROPHILS PERCENT AUTO 66 % (41-73); Platelet Count 215 K/mm3 (150-400); RDW Coefficient Variation 13.2 % (11.7-14.2); RDW Standard Deviation 38.9 fL (35.1-46.3); Red Blood Cell Count 4.61 M/mm3 (4.30-5.90); White Blood Cell Count 2.83 K/mm3 (4.00-11.30)
[2022-12-24 11:16] LABS: Albumin, Blood 2.9 g/dL (3.4-5.0); Albumin/Globulin Ratio 0.7 (0.8-1.8); Bilirubin, Total 0.9 mg/dL (0.1-1.0); Bun/Creatinine Ratio 8.5 (12.0-20.0); Calcium, Blood 8.4 mg/dL (8.5-10.1); Creatinine, Blood 1.42 mg/dL (0.60-1.20); Globulin, Blood 4.4 g/dL (2.2-4.0); Magnesium, Blood 1.6 mg/dL (1.6-2.4); Potassium, Blood 3.4 mmol/L (3.5-5.5); Total Protein, Blood 7.3 g/dL (6.4-8.2)
[2022-12-24 14:07] LABS: Source, Urine Clean Catch
[2022-12-24 14:30] LABS: Appearance, Urine Turbid (Clear); Bilirubin, Urine Neg (Neg); Blood, Urine 5+ (Neg); Color, Urine Yellow (P-Yellow); Glucose Qualitative, Urine Neg (Neg); Ketones, Urine 1+ (Neg); Leukocyte Esterase, Urine 3+ (Neg); Nitrite, Urine Neg (Neg); Protein, Urine 4+ (Neg); Specific Gravity, Urine 1.015 (1.003-1.022); Urobilinogen, Urine NORM (Normal)
[2022-12-24 14:39] LABS: White Blood Cells, Urine TNTC /hpf (0-5)
[2022-12-24 14:40] LABS: Bacteria Many /hpf; Hyaline Casts 0-2 /lpf (0-2); Squamous Epithelial Cells Rare /hpf (Few); Transitional Epithelial Cells Rare /hpf (0-Rare)
[2022-12-24] MEDS ORDERED: CIPRO500 M1 PO (16:49)
[2022-12-24 17:32] VITALS: BP 153/85
== END 2022-12-24 17:33 | disposition home or self-care (01) ==
LOC: ER 10:09
PROVIDERS: Physician Assistant
DX: R53.1 Weakness (principal); R42 Dizziness and giddiness; E86.1 Hypovolemia; D64.9 Anemia, unspecified; C67.9 Malignant neoplasm of bladder, unspecified; R55 Syncope and collapse; R82.90 Unspecified abnormal findings in urine; E86.0 Dehydration; R06.02 Shortness of breath; I10 Essential (primary) hypertension; E11.9 Type 2 diabetes mellitus without complications; Z88.5 Allergy status to narcotic agent; Z88.8 Allergy status to other drugs, medicaments and biological substances; Z79.899 Other long term (current) drug therapy
CPT/HCPCS: 71045; 80053; 81001; 83735; 83880; 84484; 85025; 93005; 93010; J0696; J7030

== ENCOUNTER → 2023-01-02 | Outpatient (CLI) | payer MEDICARE, BC ==
[~2023-01-02] MED LIST changes: +CIPRO500 M1 PO
[2023-01-02 12:28] LABS: BASOPHILS ABSOLUTE AUTO 0.06 K/mm3 (0.00-0.23); BASOPHILS PERCENT AUTO 1 % (0-2); EOSINOPHILS PERCENT AUTO 0 % (0-6); Hematocrit 38.2 % (37.0-53.0); Hemoglobin 13.2 g/dL (13.5-17.5); IMMATURE GRAN ABSOLUTE AUTO 0.03 K/mm3 (0.00-0.10); IMMATURE GRAN PERCENT AUTO 1 % (0-1); LYMPHOCYTES ABSOLUTE AUTO 0.52 K/mm3 (0.84-5.20); LYMPHOCYTES PERCENT AUTO 12 % (21-46); MONOCYTES PERCENT AUTO 14 % (4-13); Mean Corpuscular HGB 28.4 pg (26.0-34.0); Mean Corpuscular HGB Conc 34.6 g/dL (31.5-36.5); Mean Corpuscular Volume 82 fL (80-100); NEUTROPHILS ABSOLUTE AUTO 3.02 K/mm3 (1.96-9.15); NEUTROPHILS PERCENT AUTO 71 % (41-73); Platelet Count 212 K/mm3 (150-400); RDW Coefficient Variation 14.6 % (11.7-14.2); RDW Standard Deviation 40.9 fL (35.1-46.3); Red Blood Cell Count 4.65 M/mm3 (4.30-5.90); White Blood Cell Count 4.23 K/mm3 (4.00-11.30)
[2023-01-02 12:46] LABS: Albumin/Globulin Ratio 0.7 (0.8-1.8); Bilirubin, Total 0.7 mg/dL (0.1-1.0); Bun/Creatinine Ratio 13.6 (12.0-20.0); Creatinine, Blood 1.18 mg/dL (0.60-1.20); Globulin, Blood 4.1 g/dL (2.2-4.0); Potassium, Blood 3.2 mmol/L (3.5-5.5); Total Protein, Blood 7.1 g/dL (6.4-8.2)
== END | disposition home or self-care (01) ==
LOC: LAB SHORT 12:19 → LAB 12:19
PROVIDERS: Internal Medicine Hematology & Oncology
DX: C67.9 Malignant neoplasm of bladder, unspecified (principal)
CPT/HCPCS: 80053; 85025

== ENCOUNTER → 2023-03-24 | Outpatient (CLI) | payer MEDICARE, BC ==
[2023-03-24 13:47] LABS: Source, Urine Clean Catch
[2023-03-24 17:52] LABS: Appearance, Urine Cloudy (Clear); Bilirubin, Urine Neg (Neg); Blood, Urine 5+ (Neg); Color, Urine Yellow (P-Yellow); Glucose Qualitative, Urine Neg (Neg); Ketones, Urine Neg (Neg); Leukocyte Esterase, Urine 3+ (Neg); Nitrite, Urine Neg (Neg); Protein, Urine 3+ (Neg); Specific Gravity, Urine 1.015 (1.003-1.022); Urobilinogen, Urine NORM (Normal)
[2023-03-24 18:15] LABS: Bacteria Many /hpf; Red Blood Cells, Urine TNTC /hpf (0-2); Squamous Epithelial Cells Few /hpf (Few); White Blood Cells, Urine TNTC /hpf (0-5)
== END | disposition home or self-care (01) ==
LOC: LAB SHORT 09:30 → LAB 09:30 → EDSTATUS 03-23 13:45 → LAB FUT 03-23 13:45
PROVIDERS: Physician Assistant
DX: N39.0 Urinary tract infection, site not specified (principal)
CPT/HCPCS: 81001; 87086

== ENCOUNTER → 2023-04-11 | Outpatient (CLI) | payer MEDICARE, BC ==
[2023-04-11 11:48] LABS: Source, Urine Clean Catch
[2023-04-11 14:49] LABS: Appearance, Urine Cloudy (Clear); Bilirubin, Urine Neg (Neg); Blood, Urine 5+ (Neg); Color, Urine Yellow (P-Yellow); Glucose Qualitative, Urine Neg (Neg); Ketones, Urine Neg (Neg); Leukocyte Esterase, Urine 3+ (Neg); Nitrite, Urine Neg (Neg); Protein, Urine 3+ (Neg); Urobilinogen, Urine NORM (Normal)
[2023-04-11 15:09] LABS: Red Blood Cells, Urine 25-50 /hpf (0-2); Squamous Epithelial Cells Not Seen /hpf (Few); White Blood Cells, Urine TNTC /hpf (0-5)
[2023-04-11 15:10] LABS: Bacteria Many /hpf
== END | disposition home or self-care (01) ==
LOC: LAB 10:00 → LAB SHORT 10:00 → EDSTATUS 04-08 13:40 → LAB FUT 04-08 13:40
PROVIDERS: Emergency Medicine
DX: N39.0 Urinary tract infection, site not specified (principal)
CPT/HCPCS: 81001; 87077; 87086; 87186

== ENCOUNTER 2023-05-28 18:22 | Emergency (ER) | payer MEDICARE, BC ==
[~2023-05-28] VITALS: Ht 188 cm; Wt 64.0 kg
[2023-05-28 18:41] VITALS: BP 133/80
== END 2023-05-28 21:56 | disposition home or self-care (01) ==
LOC: ER 18:22
DX: K59.00 Constipation, unspecified (principal); I10 Essential (primary) hypertension; E11.9 Type 2 diabetes mellitus without complications; Z96.0 Presence of urogenital implants; Z88.5 Allergy status to narcotic agent; Z88.8 Allergy status to other drugs, medicaments and biological substances; Z79.899 Other long term (current) drug therapy
CPT/HCPCS: 74018; 99283-25; A9270

== ENCOUNTER 2023-07-23 21:12 | Emergency (ER) | payer MEDICARE, BC ==
[~2023-07-23] VITALS: Ht 188 cm; Wt 59.4 kg
[2023-07-23 21:21] VITALS: BP 122/77
[2023-07-23 22:45] LABS: Calcium, Ionized (POC) 1.01 mmol/L (1.10-1.46); Chloride (POC) 101 mmol/L (98-108); Creatinine (POC) 1.2 mg/dL (0.8-1.3); Glucose (ISTAT POC) 108 mg/dL (70-99); Hemoglobin (POC) 11.9 g/dL (13.5-17.5); Potassium (POC) 3.7 mmol/L (3.5-5.5); Sodium (POC) 136 mmol/L (135-148); Total CO2 (POC) 23 mmol/L (21-32)
[2023-07-24] MEDS ORDERED: MIRALAX1714 PO (00:35)
== END 2023-07-24 00:55 | disposition home or self-care (01) ==
LOC: ER 21:12
PROVIDERS: Emergency Medicine
DX: K59.00 Constipation, unspecified (principal); G89.3 Neoplasm related pain (acute) (chronic); C67.9 Malignant neoplasm of bladder, unspecified; C77.4 Secondary and unspecified malignant neoplasm of inguinal and lower limb lymph nodes; C79.51 Secondary malignant neoplasm of bone; F11.90 Opioid use, unspecified, uncomplicated; Z88.5 Allergy status to narcotic agent; Z88.8 Allergy status to other drugs, medicaments and biological substances; Z79.899 Other long term (current) drug therapy
CPT/HCPCS: 74018; 80047; 85014; 99283-25; A9270